=== PATIENT | male | born 1955 | race African-American/Black ===

== ENCOUNTER → 2019-05-21 | Outpatient (CLI) | payer OTHER ==
--- NOTE | 2019-05-21 10:38 | US ---
EXAMINATION TYPE: US liver DATE OF EXAM: 05/21/2019 COMPARISON: NONE CLINICAL HISTORY: B18.2 Chronic hepatitis C without mention...... Chronic Hep C EXAM MEASUREMENTS: Liver Length: 15.3 cm Gallbladder Wall: 0.2 cm CBD: 0.3 cm Right Kidney: 10.4 x 4.3 x 4.4 cm Pancreas: wnl Liver: wnl. Homogeneous echotexture. No focal mass is identified. Gallbladder: wnl Evidence for sonographic Goldstein's sign: No CBD: wnl Right Kidney: wnl IMPRESSION: Currently homogeneous hepatic echotexture despite the known hepatocellular disease. No fo anjali masses exam.
[2019-05-21 11:04] LABS: Basophils # (A) 0.2 k/uL (0-0.2); Basophils % (A) 2 %; Eosinophils # (A) 0.2 k/uL (0-0.7); Eosinophils % (A) 3 %; HCT 45.9 % (39.0-53.0); HGB 15.4 gm/dL (13.0-17.5); Lymphocytes # (A) 1.6 k/uL (1.0-4.8); Lymphocytes % (A) 24 %; MCH 30.8 pg (25.0-35.0); MCHC 33.5 g/dL (31.0-37.0); Mean Platelet Volume 6.6; Monocytes # (A) 0.4 k/uL (0-1.0); Monocytes % (A) 6 %; Neutrophils # (A) 3.9 k/uL (1.3-7.7); Neutrophils % (A) 62 %; Platelet Count 237 k/uL (150-450); RBC 4.99 m/uL (4.30-5.90); WBC 6.4 k/uL (3.8-10.6)
[2019-05-21 11:11] LABS: INR 0.9 (<1.2); Prothrombin Time 10.1 sec (9.0-12.0)
[2019-05-21 11:40] LABS: Bilirubin, Delta 0.2 mg/dL (0.0-0.2); Bilirubin,Unconjugated 0.2 mg/dL (0.0-1.1); Total Bilirubin 0.4 mg/dL (0.2-1.3); Total Protein 8.1 g/dL (6.3-8.2)
[2019-05-21 17:59] LABS: Alpha Fetoprotein, Tumor Mkr <2.5 ng/mL (0.0-7.9)
[2019-05-21 19:05] LABS: Hepatitis A Antibody IgM Non-Reactive (Non-Reactive); Hepatitis B Core IgM Non-Reactive (Non-Reactive); Hepatitis B Surface Antigen Non-Reactive (Non-Reactive); Hepatitis C IgG Antibody Reactive (Non-Reactive)
== END | disposition home or self-care (01) ==
LOC: RADUSWWP 09:19
PROVIDERS: ATTEND Internal Medicine Gastroenterology
DX: R93.2 Abnormal findings on diagnostic imaging of liver and biliary tract (principal); B18.2 Chronic viral hepatitis C
CPT/HCPCS: 36415; 76705; 80074; 80076; 82105; 82565; 85025; 85610; 87522

== ENCOUNTER → 2019-07-23 | Outpatient (CLI) | payer OTHER ==
[2019-07-23 15:07] LABS: Basophils # (A) 0.1 k/uL (0-0.2); Basophils % (A) 1 %; Eosinophils # (A) 0.2 k/uL (0-0.7); Eosinophils % (A) 2 %; HGB 14.8 gm/dL (13.0-17.5); Lymphocytes # (A) 2.1 k/uL (1.0-4.8); Lymphocytes % (A) 26 %; MCH 30.4 pg (25.0-35.0); MCHC 33.6 g/dL (31.0-37.0); MCV 90.5 fL (80.0-100.0); Mean Platelet Volume 7.7; Monocytes # (A) 0.4 k/uL (0-1.0); Monocytes % (A) 5 %; Neutrophils % (A) 64 %; Platelet Count 204 k/uL (150-450); RBC 4.87 m/uL (4.30-5.90); RDW 13.1 % (11.5-15.5); WBC 7.9 k/uL (3.8-10.6)
[2019-07-23 19:28] LABS: ALT 17 U/L (10-49); AST 20 U/L (14-35); Albumin/Globulin Ratio 1.32 (1.60-3.17); Alkaline Phosphatase 77 U/L (41-126); Bilirubin, Conjugated <0.20 mg/dL (0.20-0.40); Globulin 3.1 g/dL (1.6-3.3); Total Bilirubin 0.3 mg/dL (0.2-1.2); Total Protein 7.2 g/dL (6.2-8.2)
== END | disposition home or self-care (01) ==
LOC: LABWHC1 14:33
PROVIDERS: ATTEND Physician Assistant
DX: B18.2 Chronic viral hepatitis C (principal)
CPT/HCPCS: 36415; 80076; 85025; 87522

== ENCOUNTER → 2019-09-24 | Outpatient (CLI) | payer OTHER ==
[2019-09-24 13:30] LABS: HCT 45.5 % (39.0-53.0); HGB 15.6 gm/dL (13.0-17.5); MCH 30.6 pg (25.0-35.0); MCHC 34.3 g/dL (31.0-37.0); Mean Platelet Volume 7.4; Platelet Count 232 k/uL (150-450); RBC 5.12 m/uL (4.30-5.90); RDW 13.1 % (11.5-15.5); WBC 7.7 k/uL (3.8-10.6)
[2019-09-24 20:09] LABS: Albumin 4.2 g/dL (3.80-4.90); Albumin/Globulin Ratio 1.17 (1.60-3.17); Bilirubin, Conjugated 0.2 mg/dL (0.20-0.40); Bilirubin,Unconjugated 0.2 mg/dL; Globulin 3.6 g/dL (1.6-3.3); Total Bilirubin 0.4 mg/dL (0.3-1.2); Total Protein 7.8 g/dL (6.2-8.2)
== END | disposition home or self-care (01) ==
LOC: LABWHC1 12:59
PROVIDERS: ATTEND Physician Assistant
DX: B18.2 Chronic viral hepatitis C (principal)
CPT/HCPCS: 36415; 80076; 85027; 87522

== ENCOUNTER 2020-12-05 13:24 | Inpatient (IN) | payer MEDICARE, OTHER ==
[2020-12-05] MEDS ORDERED: LIDOCAINE 1% INJ 10MG/ML (20 ML MDV) ONE ×2 (13:41→14:04)
[2020-12-05] MEDS ORDERED: fentaNYL (PF) 50 MCG/ML 2 ML AMP ONE (13:41)
[2020-12-05] MEDS ORDERED: MIDAZOLAM 2 MG/2 ML VIAL IVP ONE (14:01)
[2020-12-05] MEDS ORDERED: fentaNYL (PF) 50 MCG/ML 2 ML AMP IVP ONE (14:01)
[2020-12-05] MEDS ORDERED: LIDOCAINE 1% INJ 10MG/ML (20 ML MDV) SQ ONE ×2 (14:01→14:05)
[2020-12-05] MEDS ORDERED: IV FLUID CONTINUATION 900 ML IV ONE (14:10)
[2020-12-05] MEDS ORDERED: BIVALIRUDIN BOLUS 250 MG/50 ML IV ONE (14:23)
[2020-12-05] MEDS ORDERED: BIVALIRUDIN 250 MG in SODIUM CHLORIDE 0.9% 50 ML IV ONE (14:23)
--- NOTE | 2020-12-05 14:26 | CONS ---
CONSULTATION REFERRING PHYSICIAN: Dr. Gr. CHIEF COMPLAINT: Chest pain. Mr. Brown is a 65-year-old gentleman who went to see his primary care physician because of chest discomfort. He had an EKG that showed extensive ST-T wave changes with global left ventricular hypertrophy and had subtle ST-segment elevation in leads 3 and AVF with small Q-waves. The patient's troponin came back elevated at 3 and due to this he was advised to undergo cardiac catheterization. The patient's clinical presentation is consistent with post infarct angina. The patient probably had his myocardial infarction in the last several days as his symptoms have been going on for the last one week. He describes it as precordial chest pressure, moderate intensity that is like a band associated with difficulty in breathing. No radiation to neck, arm or back. PAST MEDICAL HISTORY: Significant for hypertension. He does not have a list of his medications. ALLERGIES: None. FAMILY HISTORY: Negative for premature coronary artery disease. SOCIAL HISTORY: Significant for smoking. There is no history of EtOH abuse or drug abuse. REVIEW OF SYSTEMS: HEENT is unremarkable. CARDIAC: As described above. RESPIRATORY: As described above. GI: Negative. GENITOURINARY: Negative. ALLERGY/IMMUNOLOGY: Negative. SKIN: Negative. MUSCULOSKELETAL: Negative. ENDOCRINE: Negative. DERM: Negative. CONSTITUTIONAL: Negative. ONCOLOGICAL: Negative. DICE PERSON: Negative. Rest of the system review is not relevant. EXAM: Comfortable at rest. Vital signs are stable. There is no jugular venous distention. Carotid upstroke is normal. There is no bruit. Chest exam reveals good air entry bilaterally. Heart exam reveals first and second heart sounds. No gallop. No murmur. No rub. Abdomen is soft, nontender. Examination of extremities did not reveal any edema. Peripheral pulses are felt. The EKG is as described above. Troponin is elevated. The patient was initially in the emergency room at [facility] and I am transferring him to [place]. ASSESSMENT: Recent inferior wall myocardial infarction with post infarct angina. PLAN: Patient will undergo emergent cardiac catheterization for further evaluation. MMODL / IJN: [id number] /
[2020-12-05] MEDS ORDERED: IOPAMIDOL-370 125ML BTL INJ ONE (14:36)
[2020-12-05] MEDS ORDERED: NITROGLYCERIN 1000MCG/10ML SYRINGE INTRACORON ONE ×2 (14:44→14:50)
[2020-12-05] MEDS ORDERED: niCARdipine Syringe (1,000 mcg/10 mL) INTRACORON ONE ×2 (14:44→14:51)
[2020-12-05] MEDS ORDERED: CLOPIDOGREL 75 MG TAB ONE (14:53)
[2020-12-05] MEDS ORDERED: CLOPIDOGREL 75 MG TAB PO ONE (14:54)
[2020-12-05] MEDS ORDERED: MAG HYDROX/AL HYDROX/SIMETH 30 ML CUP PO PRN (15:03)
[2020-12-05] MEDS ORDERED: ZOLPIDEM 5 MG TAB PO PRN (15:03)
[2020-12-05] MEDS ORDERED: RX INFO: IV CONTRAST WAS GIVEN 1 EACH MISC MISCELLANE PRN (15:03)
[2020-12-05] MEDS ORDERED: ATROPINE SULFATE 0.1 MG/ML 10ML SYRINGE IV PRN (15:03)
[2020-12-05] MEDS ORDERED: SODIUM CHLORIDE 0.9% 1,000 ML IV SCH (15:15)
[2020-12-05 15:38] LABS: Glucose,Whole Blood 108 mg/dL (75-99)
--- NOTE | 2020-12-05 15:59 | CC ---
CARDIAC CATHETERIZATION REPORT INDICATION: Acute myocardial infarction with post infarct angina. PROCEDURE NOTE: After obtaining informed consent, left heart catheterization and coronary angiogram are performed via the left femoral artery using standard An catheter. I initially attempted vascular access from the right side. However, his pulse is feeble and we were not able to obtain the axis. Hence, I proceeded to perform the cardiac cath from the left femoral artery. He tolerated the procedure well without any obvious immediate complications. The patient received moderate conscious sedation. Total sedation time was 15 minutes. FINDINGS: HEMODYNAMICS: Left ventricular end-diastolic pressure is 18 mm. There is no significant gradient across the aortic valve. LEFT VENTRICULOGRAM: Not performed. ANGIOGRAPHIC DATA: Left Main coronary artery: Left main coronary artery is a normal-sized vessel and is free of stenosis. Divides into left anterior descending coronary artery and circumflex coronary artery. LEFT ANTERIOR DESCENDING CORONARY ARTERY: LAD shows a mild to moderate atherosclerotic plaque in the proximal part, but is free of focal stenotic lesions. CIRCUMFLEX CORONARY ARTERY: Circumflex coronary artery and its branches are free of significant stenosis. RIGHT CORONARY ARTERY: Right coronary artery is subtotally occluded in its midportion with [id number] collaterals to the distal RCA. CONCLUSIONS: 1. Subtotal occlusion of the mid RCA. 2. Moderate atherosclerotic plaque in the proximal LAD. PLAN: Patient will undergo angioplasty with stent placement to the right coronary artery, has peripheral vascular disease on the right side and we will revascularize him later. MMODL / IJN: [id number] /
--- NOTE | 2020-12-05 16:11 | PTCA ---
PERCUTANEOUSTRANS CORORONARY ANGIOGRAPHY DATE OF SERVICE: December 05, 2020. PERFORMING PHYSICIAN: Vasyl Mckeon MD. PROCEDURE PERFORMED: 1. Successful stenting of the mid right coronary artery using 2.5 x 23 mm Xience drug- eluting stent with an excellent angiographic results and reduction of stenosis from 100% to 0%. 2. Selective left common femoral artery angiogram. INDICATION: This is a 65-year-old -[place]aur[place] gentleman who presented initially to [facility] with chest discomfort and ruled in for acute coronary syndrome. He was brought after that to [facility] where he underwent an emergent heart catheterization by Dr. Akhtar and that revealed mild to moderate nonobstructive disease involving the left coronary system with possible spontaneous healed LAD dissection as well as acute/subacute total occlusion of the mid right coronary artery. Because of that, PCI was advised. APPROACH: Left common femoral artery. COMPLICATION: None. LEVEL OF SEDATION: Moderate with sedation length of 35 minutes. PROCEDURE DESCRIPTION: Please refer to the diagnostic heart catheterization was performed by Dr. Akhtar earlier today. Anticoagulation was initiated using Angiomax with bolus and drip per protocol. Subsequently, I did engage the RCA using a using All right guide. I crossed the lesion in the mid RCA using a Whisper wire and for backup support I used a filter XT wire After that, PTCA ballooning was initially attempted using 2.0 x 12 mm balloon but the balloon will not cross the lesion, so I started with 1.5 mm x 12 mm balloon. The balloon was inflated under 14 atmospheres for 20 seconds multiple times in the mid RCA. After that, I did balloon angioplasty using 2.0 x 12 mm balloon which also was inflated under 14 atmospheres multiple times. Subsequently, I did deploy a 2.5 x 23 mm Xience drug-eluting stent where the stent was positioned under fluoroscopy guidance and deployed under its nominal pressure. Of course, the stent was deployed after the palomo wire was pulled out. The following angiogram showed excellent angiographic results and the procedure was completed without any complication. After that, I did selective left common femoral artery angiogram before the procedure was completed. POSTPROCEDURE MANAGEMENT: 1. Dual anti-platelet therapy. 2. Risk factor modifications. 3. Follow up with the patient. MMODL / IJN: [id number] /
[2020-12-05] MEDS: NITROGLYCERIN SL TABS 0.4 MG TAB SUBLINGUAL PRN ×2 (18:17→18:29)
[2020-12-05] MEDS ORDERED: HYDROmorphone 0.5 MG/0.5 ML SYRINGE IVP STA (18:20)
[2020-12-05] MEDS ORDERED: SODIUM CHLORIDE 0.9% 500 ML 500 ML IV ONE (18:44)
[2020-12-05] MEDS: METOPROLOL TARTRATE 25 MG TAB PO SCH (20:55)
[2020-12-05] MEDS: ATORVASTATIN 80 MG TAB PO SCH (20:55)
[2020-12-06] MEDS: NOREPINEPHRINE 4 MG in SODIUM CHLORIDE 0.9% 250 ML IV SCH ×2 (04:44→10:31)
[2020-12-06] MEDS: ASPIRIN 325 MG TAB PO SCH (08:19)
[2020-12-06] MEDS: CLOPIDOGREL 75 MG TAB PO SCH (08:19)
[2020-12-06] MEDS: METOPROLOL TARTRATE 25 MG TAB PO SCH ×2 (08:19→19:38)
--- NOTE | 2020-12-06 09:47 | P.PN ---
Subjective Progress Note Date: 12/06/20 Principal diagnosis: Acute coronary syndrome This is a very pleasant 65-year-old gentleman with hypertension and dyslipidemia who presented to the hospital with chest discomfort and underwent an emergent heart catheterization which revealed potential spontaneous dissection in the left anterior descending artery with a good flow and also total occlusion of the RCA. He underwent successful stenting of the RCA with a good angiographic results. The patient was seen this morning. Currently he is chest pain-free. He is hemodynamically stable. An echo is in process to be done. He is on dual antiplatelet therapy along with high intensity statin. Objective - Vital Signs Vital signs: Vital Signs Temp 98.3 F 12/06/20 04:00 Pulse 79 12/06/20 08:00 Resp 20 12/06/20 08:00 BP 101/74 12/06/20 08:00 Pulse Ox 93 L 12/06/20 08:00 Intake & Output 12/05/20 12/06/20 12/06/20 18:59 06:59 18:59 Intake Total 715 1200 100 Output Total 650 1425 Balance 65 -225 100 Weight 74 kg 70 kg Intake: IV 175 700 100 Sodium Chloride 0.9% 1, 700 100 000 ml @ 100 mls/hr IV . Q10H NATALI Rx#:[id number] Intake, IV Titration 300 500 Amount Sodium Chloride 0.9% 1, 300 000 ml @ 100 mls/hr IV . Q10H NATALI Rx#:[id number] Sodium Chloride 0.9% 500 500 ml 500 ml @ 999 mls/hr IV .Q31M ONE Rx#:[id number] Oral 240 Output: Urine 650 1425 Other: Voiding Method Urinal Urinal Urinal ABP, PAP, CO, CI - Last Documented Arterial Blood Pressure 174/72 - Constitutional General appearance: Present: no acute distress - Respiratory Respiratory: bilateral: CTA - Cardiovascular Rhythm: regular Heart sounds: normal: S1, S2 - Labs CBC & Chem 7: 12/06/20 04:04 Labs: Abnormal Lab Results - Last 24 Hours (Table) 12/05/20 12/06/20 Range/Units 15:35 04:04 Creatinine 1.51 H (0.66-1.25) mg/dL POC Glucose (mg/dL) 108 H (75-99) mg/dL Assessment and Plan Assessment: Assessment #[address] patient myocardial infarction #2 status post PCI of the RCA #3 possible spontaneous dissection of the left anterior descending artery #4 multiple comorbid conditions Plan #1 continue the current medical regimen #2 follow-up on the echocardiogram
[2020-12-06 11:32] VITALS: BMI 22.1
[2020-12-06 12:39] LABS: Calcium 8.1 mg/dL (8.4-10.2); Potassium 4.6 mmol/L (3.5-5.1)
--- NOTE | 2020-12-06 14:50 | P.HPIM ---
History of Present Illness 65-year-old pleasant -Thai male came in with the complaints of chest pain patient was seen initially at [facility] found to have a mild ST-T wave changes in the inferior leads was subsequently transferred here found to have critical occlusion in the the RCA patient received stents to RCA. Patient is clinically doing well without any chest pain patient does smoke. Patient denied any fever chills patient and nausea vomiting abdominal pain dysuria. Review of Systems REVIEW OF SYSTEMS: CONSTITUTIONAL: No fever, no malaise, no fatigue. HEENT: No recent visual problems or hearing problems. Denied any sore throat. CARDIOVASCULAR: No orthopnea, PND, no palpitations, no syncope. PULMONARY: No shortness of breath, no cough, no hemoptysis. GASTROINTESTINAL: No diarrhea, no nausea, no vomiting, no abdominal pain. NEUROLOGICAL: No headaches, no weakness, no numbness. HEMATOLOGICAL: Denies any bleeding or petechiae. GENITOURINARY: Denies any burning micturition, frequency, or urgency. MUSCULOSKELETAL/RHEUMATOLOGICAL: Denies any joint pain, swelling, or any muscle pain. ENDOCRINE: Denies any polyuria or polydipsia. The rest of the 14-point review of systems is negative. Past Medical History Past Medical History: Chest Pain / Angina, Hypertension, Myocardial Infarction ([place]), Renal Disease Additional Past Medical History / Comment(s): cp for 5 days, stemi today. hepC Last Myocardial Infarction Date:: 12/05/2020 History of Any Multi-Drug Resistant Organisms: None Reported Past Surgical History: Heart Catheterization With Stent Additional Past Surgical History / Comment(s): heart cath with stent 12/05/2020 Past Anesthesia/Blood Transfusion Reactions: Unable to Obtain Date of Last Stent Placement:: 12/05/2020 Smoking Status: Current every day smoker Medications and Allergies Home Medications Medication Instructions Recorded Confirmed Type Ibuprofen [Motrin] 800 mg PO Q6H PRN 12/05/20 12/05/20 History amLODIPine [Norvasc] 5 mg PO DAILY 12/05/20 12/05/20 History Allergies Allergy/AdvReac Type Severity Reaction Status Date / Time No Known Allergies Allergy Verified 12/05/20 16:10 Physical Exam Vitals: Vital Signs Temp Pulse Resp BP Pulse Ox 12/06/20 10:00 63 20 112/85 92 L 12/06/20 09:00 74 15 107/49 92 L 12/06/20 08:00 79 20 101/74 93 L 12/06/20 07:00 68 21 93/70 12/06/20 06:30 73 26 H 103/75 94 L 12/06/20 06:00 73 20 99/79 93 L 12/06/20 05:30 68 12 106/84 12/06/20 05:00 73 17 94/77 12/06/20 04:30 69 24 108/79 96 12/06/20 04:00 98.3 F 75 14 107/82 98 12/06/20 03:30 71 12 104/83 95 12/06/20 03:00 72 10 L 106/82 96 12/06/20 02:30 66 11 L 105/73 97 12/06/20 02:00 68 14 108/73 96 12/06/20 01:30 74 9 L 84/65 94 L 12/06/20 01:00 70 21 107/89 96 12/06/20 00:30 67 17 107/83 97 12/06/20 00:00 98.6 F 70 21 104/78 100 12/05/20 23:30 67 24 122/80 98 12/05/20 23:00 64 17 107/81 97 12/05/20 22:30 64 14 124/74 96 12/05/20 22:00 63 8 L 109/83 99 12/05/20 21:38 66 7 L 114/88 99 12/05/20 21:30 75 15 117/82 97 12/05/20 21:00 75 16 118/89 97 12/05/20 20:30 82 18 114/86 97 12/05/20 20:00 98.1 F 77 15 96/79 96 12/05/20 19:30 71 16 98/76 98 12/05/20 19:00 64 16 98/76 95 12/05/20 18:55 69 20 96/72 95 12/05/20 18:50 67 16 87/69 96 12/05/20 18:45 72 16 65/46 92 L 12/05/20 18:40 74 20 61/46 92 L 12/05/20 18:35 77 18 83/61 93 L 12/05/20 18:30 83 16 117/94 93 L 12/05/20 18:00 77 16 117/94 98 05/23/21 17:30 77 16 115/92 96 12/05/20 17:00 82 20 124/89 97 12/05/20 16:30 76 19 118/91 96 12/05/20 16:00 74 13 112/87 97 12/05/20 15:30 98 F 73 16 119/96 97 Intake and Output 12/05/20 12/06/20 12/06/20 22:59 06:59 14:59 Intake Total 1040 700 300 Output Total 1200 875 200 Balance -160 -175 100 Intake: IV 700 300 Sodium Chloride 0.9% 1, 700 300 000 ml @ 100 mls/hr IV . Q10H NATALI Rx#:[id number] Intake, IV Titration 800 Amount Sodium Chloride 0.9% 1, 300 000 ml @ 100 mls/hr IV . Q10H NATALI Rx#:[id number] Sodium Chloride 0.9% 500 500 ml 500 ml @ 999 mls/hr IV .Q31M ONE Rx#:[id number] Oral 240 Output: Urine 1200 875 200 Other: Voiding Method Urinal Urinal Urinal # Voids 1 Weight 74 kg 70 kg 70 kg PHYSICAL EXAMINATION: GENERAL: The patient is alert and oriented x3, not in any acute distress. Well developed, well nourished. HEENT: Pupils are round and equally reacting to light. EOMI. No scleral icterus. No conjunctival pallor. Normocephalic, atraumatic. No pharyngeal erythema. No thyromegaly. CARDIOVASCULAR: S1 and S2 present. No murmurs, rubs, or gallops. PULMONARY: Chest is clear to auscultation, no wheezing or crackles. ABDOMEN: Soft, nontender, nondistended, normoactive bowel sounds. No palpable organomegaly. MUSCULOSKELETAL: No joint swelling or deformity. EXTREMITIES: No cyanosis, clubbing, or pedal edema. NEUROLOGICAL: Gross neurological examination did not reveal any focal deficits. SKIN: No rashes. Results CBC & Chem 7: 12/06/20 04:04 Labs: Abnormal Lab Results - Last 24 Hours (Table) 12/05/20 12/06/20 12/06/20 Range/Units 15:35 04:04 04:04 Sodium 136 L (137-145) mmol/L Chloride 108 H (98-107) mmol/L Carbon Dioxide 21 L (22-30) mmol/L Creatinine 1.51 H 1.51 H (0.66-1.25) mg/dL Glucose 112 H (74-99) mg/dL POC Glucose (mg/dL) 108 H (75-99) mg/dL Calcium 8.1 L (8.4-10.2) mg/dL Thrombosis Risk Factor Assmnt - Choose All That Apply Each Factor Represents 1 point: Acute [place] Each Risk Factor Represents 2 Points: Age 61-74 years Thrombosis Risk Factor Assessment Total Risk Factor Score: 3 Thrombosis Risk Factor Assessment Level: Moderate Risk Assessment and Plan Plan: Acute inferior lateral ST elevation myocardial infarction: Patient is status post stenting to RCA. -Nicotine use: Counseling Was provided -Possible chronic kidney disease takes 3 I do not have his baseline creatinine present creatinine is around 1.5 possible hypertensive nephrosclerosis -Hypertension
--- NOTE | 2020-12-06 17:00 | ECHOF ---
Referral Reason:ACS MEASUREMENTS -------- HEIGHT: 177.8 cm WEIGHT: 69.9 kg BP: 93/70 IVSd: 1.7 cm (0.6 - 1.1) LVIDd: 4.2 cm (3.9 - 5.3) LVPWd: 1.4 cm (0.6 - 1.1) EDV(Teich): 77 ml IVSs: 2.1 cm LVIDs: 2.8 cm LVPWs: 1.8 cm %IVS Thck: 28 % ESV(Teich): 31 ml EF(Teich): 60 % %FS: 32 % SV(Teich): 46 ml RVIDd: 3.4 cm (< 3.3) LALs A4C: 5.4 cm LAAs A4C: 19.9 cm LAESV A-L A4C: 62 ml LAESV MOD A4C: 55 ml LALs A2C: 5.6 cm LAAs A2C: 23.4 cm LAESV A-L A2C: 83 ml LAESV MOD A2C: 81 ml LAESV(A-L): 73 ml LAESV Index (A-L): 38.92 ml/m Ao Diam: 3.5 cm (2.0 - 3.7) AV Cusp: 2.5 cm (1.5 - 2.6) EPSS: 0.5 cm MV E Juan David: 0.69 m/s MV DecT: 235 ms MV Dec [place]: 3.0 m/s MV A Juan David: 0.90 m/s MV E/A Ratio: 0.77 MV PHT: 68 ms LVOT Vmax: 1.01 m/s LVOT maxP.07 mmHg AV Vmax: 1.09 m/s AV maxP.73 mmHg TR Vmax: 2.66 m/s TR maxP.25 mmHg RAP: 5.00 mmHg RVSP: 33.25 mmHg MV EF SLOPE: 74.56 mm/s (70 - 150) MV EXCURSION: 15.64 mm (> 18.000) FINDINGS -------- Sinus rhythm. This was a technically adequate study. The left ventricular size is normal. There is severe concentric left ventricular hypertrophy. Ove rall left ventricular systolic function is low-normal with, an EF between 50 - 55 %. Basal inferior LV wall motion is hypokinetic. The right ventricle is mildly enlarged. LA is moderately dilated 34-39 ml/m2 The right atrial size is normal. Interatrial and interventricular septum intact. The aortic valve is trileaflet and appears structurally normal. There is no evidence of aortic regu rgitation. There is no evidence of aortic stenosis. Uteb-vc-vedoliza mitral regurgitation is present. Tngz-jh-psfijtay tricuspid regurgitation present. There is borderline pulmonary artery hypertension . The right ventricular systolic pressure, as measured by Doppler, is 33.25mmHg. Trace/mild (physiologic) pulmonic regurgitation. The aortic root size is normal. IVC Not well visulized. There is no pericardial effusion. CONCLUSIONS -------- 1. The left ventricular size is normal. 2. There is severe concentric left ventricular hypertrophy. 3. Overall left ventricular systolic function is low-normal with, an EF between 50 - 55 %. 4. Basal inferior LV wall motion is hypokinetic. 5. The right ventricle is mildly enlarged. 6. LA is moderately dilated 34-39 ml/m2 7. Zako-mc-yuovbzxe mitral regurgitation is present. 8. Isyl-mq-wpygcojk tricuspid regurgitation present. 9. Trace/mild (physiologic) pulmonic regurgitation. CIPHER EXPERT: Pamela Lange RDCS
[2020-12-06] MEDS: ATORVASTATIN 80 MG TAB PO SCH (19:38)
[2020-12-07 07:54] LABS: HCT 41.8 % (39.0-53.0); HGB 14.5 gm/dL (13.0-17.5); MCH 29.9 pg (25.0-35.0); MCHC 34.6 g/dL (31.0-37.0); MCV 86.3 fL (80.0-100.0); Mean Platelet Volume 7.2; Platelet Count 250 k/uL (150-450); RBC 4.84 m/uL (4.30-5.90); RDW 13.5 % (11.5-15.5); WBC 10.7 k/uL (3.8-10.6)
[2020-12-07] MEDS: ASPIRIN 325 MG TAB PO SCH (08:13)
[2020-12-07] MEDS: CLOPIDOGREL 75 MG TAB PO SCH (08:13)
[2020-12-07] MEDS: METOPROLOL TARTRATE 25 MG TAB PO SCH ×2 (08:13→19:49)
[2020-12-07 08:24] LABS: Calcium 8.7 mg/dL (8.4-10.2); Potassium 4.1 mmol/L (3.5-5.1)
[2020-12-07] MEDS ORDERED: CLOPIDOGREL 75 MG TAB PO SCH (09:00)
[2020-12-07] MEDS ORDERED: lisinopriL 5 MG TAB PO SCH (11:15)
--- NOTE | 2020-12-07 12:29 | P.PN ---
Subjective 65-year-old pleasant -Wallisian male came in with the complaints of chest pain patient was seen initially at [facility] found to have a mild ST-T wave changes in the inferior leads was subsequently transferred here found to have critical occlusion in the the RCA patient received stents to RCA. Patient is clinically doing well without any chest pain patient does smoke. Patient denied any fever chills patient and nausea vomiting abdominal pain dysuria. 12/07/2020 Patient is comfortable doing well at this time. Patient doesn't have any chest pain. Patient will be monitored for 1 more night because of ST elevation myocar dial infarction. Extensive counseling regarding nicotine cessation was provided and patient is agreeable to quit smoking. Constitutional: Denied any fatigue denied any fever. Cardio vascular: denied any chest pain, palpitations Gastrointestinal denied any nausea vomiting Pulmonary: Denied any shortness of breath cough Neurologic denied any new focal deficits All inpatient medications were reviewed and appropriate changes in these medications as dictated in the interval history and assessment and plan. Objective - Vital Signs Vital signs: Vital Signs Temp 98.1 F 12/07/20 08:00 Pulse 72 12/07/20 08:00 Resp 14 12/07/20 08:00 BP 168/86 12/07/20 08:00 Pulse Ox 98 12/07/20 08:00 Intake & Output 12/06/20 12/07/20 12/07/20 18:59 06:59 18:59 Intake Total 540 580 Output Total 200 Balance 340 580 Weight 70 kg 69.4 kg Intake: IV 300 Sodium Chloride 0.9% 1, 300 000 ml @ 100 mls/hr IV . Q10H NATALI Rx#:[id number] Intake, IV Titration 0 Amount Norepinephrine 4 mg In 0 Sodium Chloride 0.9% 250 ml @ 0.05 MCG/KG/MIN 14. 097 mls/hr IV .Q18H2M NATALI Rx#:[id number] Oral 240 580 Output: Urine 200 Other: Voiding Method Urinal Toilet # Voids 1 1 ABP, PAP, CO, CI - Last Documented Arterial Blood Pressure 174/72 - Exam PHYSICAL EXAMINATION: GENERAL: The patient is alert and oriented x3, not in any acute distress. Well developed, well nourished. HEENT: Pupils are round and equally reacting to light. EOMI. No scleral icterus. No conjunctival pallor. Normocephalic, atraumatic. No pharyngeal erythema. No thyromegaly. CARDIOVASCULAR: S1 and S2 present. No murmurs, rubs, or gallops. PULMONARY: Chest is clear to auscultation, no wheezing or crackles. ABDOMEN: Soft, nontender, nondistended, normoactive bowel sounds. No palpable organomegaly. MUSCULOSKELETAL: No joint swelling or deformity. EXTREMITIES: No cyanosis, clubbing, or pedal edema. NEUROLOGICAL: Gross neurological examination did not reveal any focal deficits. SKIN: No rashes. - Labs CBC & Chem 7: 12/07/20 07:04 12/07/20 07:04 Labs: Abnormal Lab Results - Last 24 Hours (Table) 12/06/20 12/07/20 12/07/20 Range/Units 04:04 07:04 07:04 WBC 10.7 H (3.8-10.6) k/uL Sodium 136 L (137-145) mmol/L Chloride 108 H 110 H (98-107) mmol/L Carbon Dioxide 21 L (22-30) mmol/L BUN 23 H (9-20) mg/dL Creatinine 1.51 H 1.62 H (0.66-1.25) mg/dL Glucose 112 H (74-99) mg/dL Calcium 8.1 L (8.4-10.2) mg/dL Assessment and Plan Plan: Acute inferio lateral ST elevation myocardial infarction: Patient is status post stenting to RCA. Patient is clinically well and is on dual antiplatelet therapy beta nati. We'll add lisinopril continue to hold Norvasc. -Nicotine use: Counseling Was provided -Possible chronic kidney disease takes 3 I do not have his baseline creatinine present creatinine is around 1.5 possible hypertensive nephrosclerosis -Hypertension: Patient the pressure is elevated today patient appears to have chronic kidney disease because of that reason patient will be started on lisinopril.
--- NOTE | 2020-12-07 12:31 | P.PN ---
Subjective This is a pleasant 65-year-old -[place]er male past medical history significant for hypertension, dyslipidemia and chronic nicotine dependence. He is status post PCI of the RCA in the setting of an acute ST elevated myocardial infarction. He also has a potential spontaneous dissection of the LAD with good flow. He is seen and examined sitting up in bed in no acute distress. He has no symptoms of chest discomfort or shortness of breath. Blood pressure 168/86 heart rate 72 afebrile maintaining oxygen saturation on room air. Laboratory data reviewed, WBC 10.7, hemoglobin 14.5, platelets 250, sodium 138, potassium 4.1 and creatinine 1.62. Echocardiogram obtained reveals preserved LV systolic function with ejection fraction 50-55% with basal inferior wall hypokinesia and mild to moderate mitral and tricuspid regurgitation. GENERAL: Well-appearing, well-nourished and in no acute distress. NECK: Supple without JVD or thyromegaly. LUNGS: Breath sounds clear to auscultation bilaterally. Respiration equal and unlabored. No wheezes, rales or rhonchi. HEART: Regular rate and rhythm without murmurs, rubs or gallops. S1 and S2 he saida. EXTREMITIES: Normal range of motion, no edema. No clubbing or cyanosis. Peripheral pulses intact. Left femoral access site soft, non-tender with no hematomoa, ecchymosis or bruising. ASSESSMENT Acute inferior wall ST elevated [place] s/p PCI RCA Possible spontaneous dissection of the LAD Hypertension Dyslipidemia Chronic nicotine dependence Daily marijuana use PLAN Add lisinopril 5 mg daily to his regimen. Continue dual antiplatelet therapy along with statin and beta blockers. Increase activity and ambulation. Cessation of tobacco and marijuana use. Expect discharge tomorrow if he continues to remain stable. Nurse Practitioner note has been reviewed, I agree with a documented findings a nd plan of care. Patient was seen and examined. Objective - Vital Signs Vital signs: Vital Signs Temp 98.1 F 12/07/20 08:00 Pulse 72 12/07/20 08:00 Resp 14 12/07/20 08:00 BP 168/86 12/07/20 08:00 Pulse Ox 98 12/07/20 08:00 Intake & Output 12/06/20 12/07/20 12/07/20 18:59 06:59 18:59 Intake Total 540 580 Output Total 200 Balance 340 580 Weight 70 kg 69.4 kg Intake: IV 300 Sodium Chloride 0.9% 1, 300 000 ml @ 100 mls/hr IV . Q10H [facility] Rx#:[id number] Intake, IV Titration 0 Amount Norepinephrine 4 mg In 0 Sodium Chloride 0.9% 250 ml @ 0.05 MCG/KG/MIN 14. 097 mls/hr IV .Q18H2M [facility] Rx#:[id number] Oral 240 580 Output: Urine 200 Other: Voiding Method Urinal Toilet # Voids 1 1 ABP, PAP, CO, CI - Last Documented Arterial Blood Pressure 174/72 - Labs CBC & Chem 7: 12/07/20 07:04 12/07/20 07:04 Labs: Abnormal Lab Results - Last 24 Hours (Table) 12/06/20 12/07/20 12/07/20 Range/Units 04:04 07:04 07:04 WBC 10.7 H (3.8-10.6) k/uL Sodium 136 L (137-145) mmol/L Chloride 108 H 110 H (98-107) mmol/L Carbon Dioxide 21 L (22-30) mmol/L BUN 23 H (9-20) mg/dL Creatinine 1.51 H 1.62 H (0.66-1.25) mg/dL Glucose 112 H (74-99) mg/dL Calcium 8.1 L (8.4-10.2) mg/dL
[2020-12-07] MEDS: ATORVASTATIN 80 MG TAB PO SCH (19:50)
[2020-12-08 04:03] VITALS: RESP 17; TEMP 97.9
[2020-12-08 07:11] LABS: Potassium 4.2 mmol/L (3.5-5.1)
[2020-12-08 07:12] LABS: Calcium 8.8 mg/dL (8.4-10.2)
[2020-12-08] MEDS ORDERED: lisinopriL 5 MG TAB PO SCH (09:00)
[2020-12-08] MEDS ORDERED: ASPIRIN 81 MG PO SCH (09:00)
[2020-12-08] MEDS: METOPROLOL TARTRATE 25 MG TAB PO SCH (09:26)
[2020-12-08] MEDS: CLOPIDOGREL 75 MG TAB PO SCH (09:26)
--- NOTE | 2020-12-08 09:50 | P.PN ---
Subjective This is a pleasant 65-year-old -Maldivian male past medical history significant for hypertension, dyslipidemia and chronic nicotine dependence. He is status post PCI of the RCA in the setting of an acute ST elevated myocardial infarction. He is seen and examined laying down in bed in no acute distress. He has been up walking and ambulating. No chest pain, shortness of breath, dizziness or palpitations. Blood pressure 128/78 heart rate 67 afebrile and maintaining oxygen saturation on room air. Laboratory data reviewed, sodium 139, potassium 4.2, creatinine 1.67. GENERAL: Well-appearing, well-nourished and in no acute distress. NECK: Supple without JVD or thyromegaly. LUNGS: Breath sounds clear to auscultation bilaterally. Respiration equal and unlabored. No wheezes, rales or rhonchi. HEART: Regular rate and rhythm without murmurs, rubs or gallops. S1 and S2 heard. EXTREMITIES: Normal range of motion, no edema. No clubbing or cyanosis. Peripheral pulses intact. Left femoral access site soft, non-tender with no hematomoa, ecchymosis or bruising. ASSESSMENT Acute inferior wall ST elevated [place] s/p PCI RCA Possible spontaneous dissection of the LAD Hypertension Dyslipidemia Chronic nicotine dependence Daily marijuana use PLAN Stable for discharge from a cardiac perspective. Importance of dual anti-platelet therapy discussed. Tobacco and marijuana cessation discussed. Follow up with Dr. Akhtar in the office in 1 week. Medications sent to pharmacy with refills. Nurse Practitioner note has been reviewed, I agree with a documented findings and plan of care. Patient was seen and examined. Objective - Vital Signs Vital signs: Vital Signs Temp 97.9 F 12/08/20 04:00 Pulse 67 12/08/20 04:00 Resp 17 12/08/20 04:00 BP 128/78 12/08/20 04:00 Pulse Ox 99 12/08/20 04:00 Intake & Output 12/07/20 12/08/20 12/08/20 18:59 06:59 18:59 Intake Total 802 240 Balance 802 240 Weight 68.8 kg Intake: Intake, IV Titration 0 Amount Norepinephrine 4 mg In 0 Sodium Chloride 0.9% 250 ml @ 0.05 MCG/KG/MIN 14. 097 mls/hr IV .Q18H2M [facility] Rx#:[id number] Oral 802 240 Other: Voiding Method Toilet # Voids 1 ABP, PAP, CO, CI - Last Documented Arterial Blood Pressure 174/72 - Labs CBC & Chem 7: 12/07/20 07:04 12/08/20 06:31 Labs: Abnormal Lab Results - Last 24 Hours (Table) 12/08/20 Range/Units 06:31 Chloride 111 H (98-107) mmol/L Carbon Dioxide 20 L (22-30) mmol/L BUN 30 H (9-20) mg/dL Creatinine 1.67 H (0.66-1.25) mg/dL Glucose 102 H (74-99) mg/dL
[2020-12-08 10:48] LABS: LDL Cholesterol,Calculated 99.6 mg/dL (0.0-131.0); VLDL Calculation 24.4 mg/dL (5.00-40.00)
[2020-12-08 12:57] VITALS: BP 109/77; PULSE 66
--- NOTE | 2020-12-09 09:44 | P.DS ---
Providers Date of admission: 12/05/20 13:43 Expected date of discharge: 12/08/20 Attending physician: Shweta Baires Consults: 12/05/20 15:03 Consult Physician Routine Consulting Provider: [facility] Consult Reason/Comments: Post Interventional patient Do you want consulting provider notified?: Already Contacted Primary care physician: Simón Castro [facility] Course: Final diagnosis -Acute inferior lateral ST elevation myocardial infarction: Patient is status post stenting to RCA. -Nicotine use: Counseling Was provided -Possible chronic kidney disease stage 3 I do not have his baseline creatinine present creatinine is around 1.5 possible hypertensive nephrosclerosis -Hypertension Discharge disposition Patient is being discharged in a stable condition with guarded prognosis to home . Patient will follow-up with Dr. Gr in the outpatient setting upon discharge. Patient is to follow up with radiology Dr. Akhtar in one week. Total time taken is greater than 35 minutes. Hospital course 65-year-old pleasant -Filipino male came in with the complaints of chest pain patient was seen initially at [facility] found to have a mild ST-T wave changes in the inferior leads was subsequently transferred here found to have critical occlusion in the the RCA patient received stents to RCA. Patient is clinically doing well without any chest pain patient does smoke. Patient denied any fever chills patient and nausea vomiting abdominal pain dysuria. 12/07/2020 Patient is comfortable doing well at this time. Patient doesn't have any chest pain. Patient will be monitored for 1 more night because of ST elevation myocardial infarction. Extensive counseling regarding nicotine cessation was provided and patient is agreeable to quit smoking. 12/08/2020 Patient is seen this morning with no acute overnight issues. Patient was seen and evaluated by cardiology and will be following up outpatient. Patient will be discharged on nicotine patches. Patient will also continue with Lipitor, Lopressor, lisinopril, daily aspirin, Plavix and follow-up with cardiology Dr. Akhtar outpatient. Currently no reports of chest pain, shortness of breath, or palpitations. Patient is afebrile. No reports of nausea or vomiting and patient is tolerating diet. Patient will be discharged home today. On exam vital signs are stable. Cardio S1, S2 are muffled. Respiratory system shows diminished breath sounds at the bases with no wheezing or rhonchi noted. Abdomen is soft and nontender. Nervous system shows no focal deficits. Please refer to medication reconciliation sheet for a list of medications. Patient Condition at Discharge: Stable Plan - Discharge Summary New Discharge Prescriptions: New Atorvastatin [Lipitor] 80 mg PO HS #90 tab Metoprolol Tartrate [Lopressor] 25 mg PO BID #180 tab lisinopriL [Zestril] 5 mg PO DAILY #90 tab Nicotine 21Mg/24Hr Patch [Habitrol] 1 each TRANSDERM DAILY 42 Days #42 patch Nicotine 14Mg/24Hr Patch [Habitrol] 1 patch TRANSDERM DAILY 14 Days #14 patch Nicotine 7Mg/24Hr Patch [Habitrol] 1 patch TRANSDERM DAILY 14 Days #14 patch.td24 Aspirin 81 mg PO DAILY chew Nitroglycerin Sl Tabs [Nitrostat] 0.4 mg SUBLINGUAL Q5M PRN #1 bottle PRN Reason: Chest Pain Clopidogrel [Plavix] 75 mg PO DAILY #90 tab Continue Ibuprofen [Motrin] 800 mg PO Q6H PRN PRN Reason: Pain Or Fever > 100.5 Discontinued amLODIPine [Norvasc] 5 mg PO DAILY Discharge Medication List Ibuprofen [Motrin] 800 mg PO Q6H PRN 12/05/20 [History] Aspirin 81 mg PO DAILY chew 12/08/20 [Rx] Atorvastatin [Lipitor] 80 mg PO HS #90 tab 12/08/20 [Rx] Clopidogrel [Plavix] 75 mg PO DAILY #90 tab 12/08/20 [Rx] Metoprolol Tartrate [Lopressor] 25 mg PO BID #180 tab 12/08/20 [Rx] Nicotine 14Mg/24Hr Patch [Habitrol] 1 patch TRANSDERM DAILY 14 Days #14 patch 12/08/20 [Rx] Nicotine 21Mg/24Hr Patch [Habitrol] 1 each TRANSDERM DAILY 42 Days #42 patch 12/08/20 [Rx] Nicotine 7Mg/24Hr Patch [Habitrol] 1 patch TRANSDERM DAILY 14 Days #14 patch.td24 12/08/20 [Rx] Nitroglycerin Sl Tabs [Nitrostat] 0.4 mg SUBLINGUAL Q5M PRN #1 bottle 12/08/20 [Rx] lisinopriL [Zestril] 5 mg PO DAILY #90 tab 12/08/20 [Rx] Follow up Appointment(s)/Referral(s): Matthew Gr MD [Primary Care Provider] - 1 Week Tumma,Francesco R, MD [STAFF PHYSICIAN] - 1 Week Ambulatory/Diagnostic Orders: Basic Metabolic Panel [LAB.AMB] Time Frame: 3 Days, Location: None Selected Patient Instructions/Handouts: Chest Pain (DC), How to Stop Smoking (DC), Hyperlipidemia (DC) Activity/Diet/Wound Care/Special Instructions: Prescription for repeat lab work fine the nursing station on 3 [address]. Activity Limited until follow-up Follow-up with primary care provider upon discharge Follow-up with cardiology outpatient Continue with current medications as prescribed Continue to avoid tobacco use and use nicotine patches as prescribed Continue heart healthy diet Repeat labs in 2-3 days to monitor kidney functions Discharge Disposition: HOME SELF-CARE
== END 2020-12-08 12:53 | disposition home or self-care (01) | DRG 247 ==
LOC: 2SICU 13:43 → 3SCARD 12-06 16:33 → 3NCARDOBS 12-06 22:10 → 3SCARD 12-06 22:17
PROVIDERS: ADMIT Internal Medicine; ATTEND Internal Medicine
PROC: 027034Z Dilation of Coronary Artery, One Artery with Drug-eluting Intraluminal Device, Percutaneous Approach (ICD-10-PCS; principal; 2020-12-05 13:42)
PROC: B41G1ZZ Fluoroscopy of Left Lower Extremity Arteries using Low Osmolar Contrast (ICD-10-PCS; principal; 2020-12-05 13:42)
PROC: B2111ZZ Fluoroscopy of Multiple Coronary Arteries using Low Osmolar Contrast (ICD-10-PCS; principal; 2020-12-05 13:42)
PROC: 4A023N7 Measurement of Cardiac Sampling and Pressure, Left Heart, Percutaneous Approach (ICD-10-PCS; principal; 2020-12-05 13:42)
DX: I21.19 ST elevation (STEMI) myocardial infarction involving other coronary artery of inferior wall (principal); I23.7 Postinfarction angina; I73.9 Peripheral vascular disease, unspecified; N18.30 Chronic kidney disease, stage 3 unspecified; I12.9 Hypertensive chronic kidney disease with stage 1 through stage 4 chronic kidney disease, or unspecified chronic kidney disease; I25.10 Atherosclerotic heart disease of native coronary artery without angina pectoris; I25.2 Old myocardial infarction; B19.20 Unspecified viral hepatitis C without hepatic coma; E78.5 Hyperlipidemia, unspecified; F17.210 Nicotine dependence, cigarettes, uncomplicated; Z71.6 Tobacco abuse counseling; Z79.899 Other long term (current) drug therapy; Z95.5 Presence of coronary angioplasty implant and graft
CPT/HCPCS: 80048; 80061; 82565; 85027; 93306; 93458

== ENCOUNTER → 2023-03-31 | Outpatient (CLI) | payer MEDICARE, OTHER ==
[2023-03-31 23:08] LABS: ALT 21 U/L (10-49); AST 24 U/L (14-35); Chol/HDL Ratio 2.29 Ratio; VLDL Calculation 13.32 mg/dL (5.00-40.00)
== END | disposition home or self-care (01) ==
LOC: LABWHC1 10:51
PROVIDERS: ATTEND Internal Medicine Cardiovascular Disease
DX: E78.2 Mixed hyperlipidemia (principal)
CPT/HCPCS: 36415; 80061; 84450; 84460

== ENCOUNTER 2023-05-30 11:19 | Emergency (ER) | payer MEDICARE, OTHER ==
[2023-05-30] MEDS ORDERED: ORPHENADRINE 30 MG/ML 2 ML VIAL IM STA (11:51)
[2023-05-30] MEDS ORDERED: LIDOCAINE 5% PATCH TOPICAL ONE (11:51)
[2023-05-30] MEDS ORDERED: HYDROmorphone 1 MG/ML 1 ML SYRINGE IM STA ×2 (11:51→12:49)
[2023-05-30] MEDS ORDERED: KETOROLAC 15 MG/ML 1 ML VIAL IM STA (11:51)
--- NOTE | 2023-05-30 12:28 | ED ---
Back Pain HPI - General Chief Complaint: Back Pain/Injury Stated Complaint: Back Pain Time Seen by Provider: 05/30/23 11:38 Source: patient, RN notes reviewed Mode of arrival: ambulatory Limitations: no limitations - History of Present Illness Initial Comments: This is a 67-year-old male who presents to the emergency department for lower back pain. States that this started 3 days ago. Patient reports a history of chronic back pain and states that this flares up on him every now and then. This feels like a typical flareup for him. Denies any new injuries. Also denies any loss of bowel/bladder control or saddle anesthesia. Pain is much worse with movement. He is not taking anything for management of his pain. Denies any radiation into the abdomen, chest pain, shortness of breath, nausea, or vomiting. MD Complaint: back pain - Related Data Home Medications Medication Instructions Recorded Confirmed Ibuprofen [Motrin] 800 mg PO Q6H PRN 12/05/20 12/05/20 Previous Rx's Medication Instructions Recorded Aspirin 81 mg PO DAILY chew 12/08/20 Atorvastatin [Lipitor] 80 mg PO HS #90 tab 12/08/20 Clopidogrel [Plavix] 75 mg PO DAILY #90 tab 12/08/20 Metoprolol Tartrate [Lopressor] 25 mg PO BID #180 tab 12/08/20 Nicotine 14Mg/24Hr Patch [Habitrol] 1 patch TRANSDERM DAILY 14 Days 12/08/20 #14 patch Nicotine 21Mg/24Hr Patch [Habitrol] 1 each TRANSDERM DAILY 42 Days #42 12/08/20 patch Nicotine 7Mg/24Hr Patch [Habitrol] 1 patch TRANSDERM DAILY 14 Days 12/08/20 #14 patch.td24 Nitroglycerin Sl Tabs [Nitrostat] 0.4 mg SUBLINGUAL Q5M PRN #1 bottle 12/08/20 lisinopriL [Zestril] 5 mg PO DAILY #90 tab 12/08/20 methocarbamoL [Robaxin-750] 1,500 mg PO TID PRN #30 tab 05/30/23 predniSONE 50 mg PO DAILY 5 Days #5 tab 05/30/23 Allergies Allergy/AdvReac Type Severity Reaction Status Date / Time No Known Allergies Allergy Verified 05/30/23 11:24 Review of Systems ROS Statement: Those systems with pertinent positive or pertinent negative responses have been documented in the HPI. ROS Other: All systems not noted in ROS Statement are negative. Past Medical History Past Medical History: Chest Pain / Angina, Hypertension, Myocardial Infarction ([place]), Renal Disease Additional Past Medical History / Comment(s): cp for 5 days, stemi today. hepC Last Myocardial Infarction Date:: 12/05/2020 History of Any Multi-Drug Resistant Organisms: None Reported Past Surgical History: Heart Catheterization With Stent Additional Past Surgical History / Comment(s): heart cath with stent 12/05/2020 Past Anesthesia/Blood Transfusion Reactions: Unable to Obtain Date of Last Stent Placement:: 12/05/2020 Smoking Status: Former smoker Past Alcohol Use History: None Reported Past Drug Use History: None Reported General Exam Limitations: no limitations General appearance: alert, in distress Head exam: Present: atraumatic, normocephalic, normal inspection Respiratory exam: Present: normal lung sounds bilaterally. Absent: respiratory distress, wheezes, rales, rhonchi, stridor Cardiovascular Exam: Present: regular rate, normal rhythm, normal heart sounds. Absent: systolic murmur, diastolic murmur, rubs, gallop, clicks Back exam: Present: tenderness (Lower lumbar spine) Neurological exam: Present: alert, oriented X3, CN II-XII intact Psychiatric exam: Present: normal affect, normal mood Skin exam: Present: warm, dry, intact, normal color. Absent: rash Course Vital Signs 05/30/23 05/30/23 11:20 14:16 Temperature 98.5 F 98.6 F Pulse Rate 70 76 Respiratory 18 20 Rate Blood Pressure 176/107 139/80 O2 Sat by Pulse 100 99 Oximetry Medical Decision Making - Medical Decision Making This is a 67-year-old male who presents to the emergency department for lower back pain. Was pt. sent in by a medical professional or institution? @ -No Did you speak to anyone other than the patient for history? @ -No Did you review nursing and triage notes? @ -Yes, and I agree, it is accurate with regards to the patient's symptoms. Were old charts reviewed? @ -No Differential Diagnosis? @ -Differential Back Pain: Strain, zoster, cauda equina syndrome, epidural abscess, vertebral osteomye litis, discitis, fracture, subluxation, disc herniation, DJD, spinal stenosis, dissection, AAA, pancreatitis, peptic ulcer disease, pyelonephritis, kidney stone, this is not meant to be an all-inclusive list. EKG interpreted by me (3pts min.)? @ -Not obtained X-rays interpreted by me (1pt min.)? @ -Not obtained CT interpreted by me (1pt min.)? @ -Not obtained U/S interpreted by me (1pt. min.)? @ -Not obtained What testing was considered but not performed? (CT, X-rays, U/S, labs)? Why? @ -I offered x-rays, however the patient declined, saying that this was consistent with an exacerbation of his chronic pain. What meds were considered but not given? Why? @ -None Did you discuss the management of the patient with other professionals? @ -No Did you reconcile home meds? @ -No Was smoking cessation discussed for >3mins.? @ -No Was critical care preformed (if so, how long)? @ -No Were there social determinants of health that impacted care today? How? (Homelessness, low income, unemployed, alcoholism, drug addiction, transportation, low edu. Level, literacy, decrease access to med. care, retirement, rehab)? @ -No Was there de-escalation of care discussed even if they declined? (Discuss DNR or withdrawal of care, Hospice)? @ -No What co-morbidities impacted this encounter? (DM, HTN, Smoking, COPD, CAD, Cancer, CVA, Hep., AIDS, mental health diagnosis, sleep apnea, morbid obesity)? @ -Chronic back pain Was patient admitted / discharged? @ -Discharged. I did offer x-rays for further evaluation, however the patient declined, saying that this is consistent with a flareup of his chronic pain and requested medication. His symptoms were well controlled in the emergency department and he felt stable for discharge home. Prescription for 5 day course of prednisone and Robaxin provided with dosing instructions reviewed. Otherwise advised follow up with his primary care provider. Undiagnosed new problem with uncertain prognosis? @ -None Drug Therapy requiring intensive monitoring for toxicity (Heparin, Nitro, Insulin, Cardizem)? @ -None Were any procedures done? @ -None Diagnosis/symptom? @ -Chronic back pain Acute, or Chronic, or Acute on Chronic? @ -Chronic Uncomplicated (without systemic symptoms) or Complicated (systemic symptoms)? @ -Uncomplicated Side effects of treatment? @ -None Exacerbation, Progression, or Severe Exacerbation] @ -Exacerbation Poses a threat to life or bodily function? @ -No Return precautions reviewed in depth, the patient is instructed to return to the emergency department with any new, worsening, or concerning symptoms. Patient verbalized understanding. This case was discussed in detail with the attending ED physician, Dr. Webb. Presentation, findings, and treatment plan discussed in detail as well. Disposition Clinical Impression: Chronic low back pain Disposition: HOME SELF-CARE Instructions (If sedation given, give patient instructions): Chronic Back Pain (DC) Additional Instructions: Return to the emergency department with any new, worsening, or concerning symptoms. Take the Prednisone daily for 5 days. You can take the Robaxin as 1-2 tablets 3-4x daily for pain. Follow up with your primary care provider in 1-2 days. Prescriptions: predniSONE 50 mg PO DAILY 5 Days #5 tab methocarbamoL [Robaxin-750] 1,500 mg PO TID PRN #30 tab PRN Reason: Pain Is patient prescribed a controlled substance at d/c from ED?: No Referrals: Matthew Gr MD [Primary Care Provider] - 1-2 days
[2023-05-30] MEDS ORDERED: DEXAMETHASONE SOD PHOSPHATE 10 MG/ML 1 ML VIAL IM STA (12:49)
[2023-05-30] MEDS ORDERED: ACET/COD 300 MG/30 MG STARTER PACK 6 TAB BTL PO STA (13:53)
[2023-05-30 14:43] VITALS: BP 139/80; PULSE 76; RESP 20; TEMP 98.6
== END 2023-05-30 14:18 | disposition home or self-care (01) ==
LOC: EC 11:19
DX: G89.29 Other chronic pain (principal); M54.50 Low back pain, unspecified; I10 Essential (primary) hypertension; I25.2 Old myocardial infarction; Z87.891 Personal history of nicotine dependence
CPT/HCPCS: 99283; 96372 ×5; J1100; J2360; J1170; J1885

== ENCOUNTER → 2023-10-23 | Outpatient (CLI) | payer MEDICARE, OTHER ==
[2023-10-23 16:25] LABS: ALT 20 U/L (10-49); AST 20 U/L (14-35); Chol/HDL Ratio 3.14 Ratio; LDL Cholesterol,Calculated 56.8 mg/dL (0.0-131.0)
== END | disposition home or self-care (01) ==
LOC: LABWHC1 09:59
PROVIDERS: ATTEND Internal Medicine Cardiovascular Disease
DX: E78.2 Mixed hyperlipidemia (principal)
CPT/HCPCS: 36415; 80061; 84450; 84460

== ENCOUNTER → 2024-04-22 | Outpatient (CLI) | payer MEDICARE, OTHER ==
[2024-04-22 15:31] LABS: ALT 26 U/L (10-49); AST 24 U/L (14-35); Chol/HDL Ratio 2.88 Ratio; LDL Cholesterol,Calculated 66.5 mg/dL (0.0-131.0)
== END | disposition home or self-care (01) ==
LOC: LABWHC1 08:38
PROVIDERS: ATTEND Internal Medicine Cardiovascular Disease
DX: E78.2 Mixed hyperlipidemia (principal)
CPT/HCPCS: 36415; 80061; 84450; 84460

== ENCOUNTER 2024-05-21 01:26 | Emergency (ER) | payer MEDICARE, OTHER ==
[2024-05-21 01:31] VITALS: RESP 18
--- NOTE | 2024-05-21 02:14 | ED ---
ENT HPI - General Chief complaint: Dental/Oral Stated complaint: Dental Pain Time Seen by Provider: 05/21/24 01:31 Source: patient Mode of arrival: ambulatory - History of Present Illness Initial comments: 68-year-old male presenting with chief complaint of dental pain. Patient has had this dental pain ongoing for 3 days. He has 2 teeth with known severe dental caries that he was told in the past will need to be pulled eventually. No drooling, difficulty breathing or swallowing, trismus, fevers, neck pain. No swelling to the face. Patient states he took "a pain pill" at home, unsure what the pain pill was. - Related Data Home Medications Medication Instructions Recorded Confirmed Ibuprofen [Motrin] 800 mg PO Q6H PRN 12/05/20 12/05/20 Previous Rx's Medication Instructions Recorded Aspirin 81 mg PO DAILY chew 12/08/20 Atorvastatin [Lipitor] 80 mg PO HS #90 tab 12/08/20 Clopidogrel [Plavix] 75 mg PO DAILY #90 tab 12/08/20 Metoprolol Tartrate [Lopressor] 25 mg PO BID #180 tab 12/08/20 Nicotine 14Mg/24Hr Patch [Habitrol] 1 patch TRANSDERM DAILY 14 Days 12/08/20 #14 patch Nicotine 21Mg/24Hr Patch [Habitrol] 1 each TRANSDERM DAILY 42 Days #42 12/08/20 patch Nicotine 7Mg/24Hr Patch [Habitrol] 1 patch TRANSDERM DAILY 14 Days 12/08/20 #14 patch.td24 Nitroglycerin Sl Tabs [Nitrostat] 0.4 mg SUBLINGUAL Q5M PRN #1 bottle 12/08/20 lisinopriL [Zestril] 5 mg PO DAILY #90 tab 12/08/20 methocarbamoL [Robaxin-750] 1,500 mg PO TID PRN #30 tab 05/30/23 predniSONE 50 mg PO DAILY 5 Days #5 tab 05/30/23 Amoxic-Pot Clav 875-125Mg 1 tab PO Q12HR 7 Days #14 tab 05/21/24 [Augmentin 875-125] Allergies Allergy/AdvReac Type Severity Reaction Status Date / Time No Known Allergies Allergy Verified 05/21/24 01:31 Review of Systems ROS Statement: Those systems with pertinent positive or pertinent negative responses have been documented in the HPI. ROS Other: All systems not noted in ROS Statement are negative. Past Medical History Past Medical History: Chest Pain / Angina, Hypertension, Myocardial Infarction ([place]), Renal Disease Additional Past Medical History / Comment(s): cp for 5 days, stemi today. hepC Last Myocardial Infarction Date:: 12/05/2020 History of Any Multi-Drug Resistant Organisms: None Reported Past Surgical History: Heart Catheterization With Stent Additional Past Surgical History / Comment(s): heart cath with stent 12/05/2020 Past Anesthesia/Blood Transfusion Reactions: Unable to Obtain Date of Last Stent Placement:: 12/05/2020 Smoking Status: Former smoker Past Alcohol Use History: None Reported Past Drug Use History: Marijuana General Exam General appearance: alert, in no apparent distress Head exam: Present: atraumatic, normocephalic, normal inspection Eye exam: Present: normal appearance, EOMI Expanded Mouth exam: Present: normal external inspection, tongue normal. Absent: drooling, trismus, muffled voice Teeth exam: Present: dental caries, dental tenderness # Throat exam: normal inspection Neck exam: Present: normal inspection. Absent: meningismus Respiratory exam: Absent: respiratory distress Cardiovascular Exam: Present: regular rate Neurological exam: Present: alert, oriented X3 Psychiatric exam: Present: normal affect, normal mood Skin exam: Present: warm, dry, normal color Course Vital Signs 05/21/24 01:29 Temperature 98.2 F Pulse Rate 70 Respiratory 18 Rate Blood Pressure 147/95 O2 Sat by Pulse 99 Oximetry Medical Decision Making - Medical Decision Making Was pt. sent in by a medical professional or institution (, PA, [facility]OWER, urgent care, hospital, or care home...) When possible be specific @ -No Did you speak to anyone other than the patient for history (EMS, parent, family, police, friend...)? What history was obtained from this source @ -No Did you review nursing and triage notes (agree or disagree)? Why? @ -I reviewed and agree with nursing and triage notes Were old charts reviewed (outside hosp., previous admission, EMS record, old EKG, old radiological studies, urgent care reports/EKG's, care home records)? Report findings @ -No old charts were reviewed Differential Diagnosis (chest pain, altered mental status, abdominal pain women, abdominal pain men, vaginal bleeding, weakness, fever, dyspnea, syncope, headache, dizziness, GI bleed, back pain, seizure, CVA, palpatations, mental health, musculoskeletal)? @ -Differential includes dental pain, dental abscess, Williams's angina, this is not an all-inclusive list EKG interpreted by me (3pts min.). @ -As above X-rays interpreted by me (1pt min.). @ -None done CT interpreted by me (1pt min.). @ -None done U/S interpreted by me (1pt. min.). @ -None done What testing was considered but not performed or refused? (CT, X-rays, U/S, labs)? Why? @ -None What meds were considered but not given or refused? Why? @ -None Did you discuss the management of the patient with other professionals (professionals i.e. , PA, C[facility]RE[facility] BLOWER, lab, RT, psych nurse, social services aide, commercial correspondent, teacher, special police officer, showcase trimmer)? Give summary @ -No Was smoking cessation discussed for >3mins.? @ -No Was critical care preformed (if so, how long)? @ -No Were there social determinants of health that impacted care today? How? (Homelessness, low income, unemployed, alcoholism, drug addiction, [place] sportation, low edu. Level, literacy, decrease access to med. care, [facility], rehab)? @ -No Was there de-escalation of care discussed even if they declined (Discuss DNR or withdrawal of care, Hospice)? DNR status @ -No What co-morbidities impacted this encounter? (DM, HTN, Smoking, COPD, CAD, Cancer, CVA, ARF, Chemo, Hep., AIDS, mental health diagnosis, sleep apnea, morbid obesity)? @ -None Was patient admitted / discharged? Hospital course, mention meds given and route, prescriptions, significant lab abnormalities, going to OR and other pertinent info. @ -68-year-old male presenting with chief complaint of dental pain. No red flag symptoms. Patient will be treated with pain medication and antibiotics. Instructed to follow-up with his dentist. Discharged. Follow-up with PCP. Report back to ER with any new or worsening symptoms. Discussed return parameters and answered all questions. Patient conveyed verbal understanding and agreed to the plan. I discussed this case in detail with my attending Dr. Angeles Undiagnosed new problem with uncertain prognosis? @ -No Drug Therapy requiring intensive monitoring for toxicity (Heparin, Nitro, Insulin, Cardizem)? @ -No Were any procedures done? @ -No Diagnosis/symptom? @ -Toothache Acute, or Chronic, or Acute on Chronic? @ -Acute Uncomplicated (without systemic symptoms) or Complicated (systemic symptoms)? @ -Uncomplicated Side effects of treatment? @ -No Exacerbation, Progression, or Severe Exacerbation? @ -No Poses a threat to life or bodily function? How? (Chest pain, [place], [place], pneumonia, PE, COPD, DKA, ARF, appy, cholecystitis, CVA, Diverticulitis, Homicidal, Suicidal, threat to staff... and all critical care pts) @ -Unlikely Disposition Clinical Impression: Toothache, Dental caries, Dental abscess Disposition: HOME SELF-CARE Condition: Good Instructions (If sedation given, give patient instructions): Dental Abscess (ED), Toothache (ED) Additional Instructions: Follow-up with your dentist. Report back to ER with any new or worsening symptoms. Prescriptions: Amoxic-Pot Clav 875-125Mg [Augmentin 875-125] 1 tab PO Q12HR 7 Days #14 tab Is patient prescribed a controlled substance at d/c from ED?: No Referrals: None,Stated [Primary Care Provider] - 1-2 days Time of Disposition: 02:14
[2024-05-21] MEDS: Acetaminophen-Codeine 300-30mg TAB PO STA (02:24)
[2024-05-21] MEDS: ACET/COD 300 MG/30 MG STARTER PACK 6 TAB BTL PO STA (02:24)
[2024-05-21 02:33] VITALS: BP 133/90; PULSE 68; TEMP 98.1
== END 2024-05-21 02:36 | disposition home or self-care (01) ==
LOC: EC 01:26
DX: K02.9 Dental caries, unspecified (principal); K04.7 Periapical abscess without sinus; Z87.891 Personal history of nicotine dependence
CPT/HCPCS: 99282